=== PATIENT | female | born 1960 | race Caucasian/White ===

== ENCOUNTER 2016-09-29 06:00 | Emergency (ER) | payer OTHER ==
[~2016-09-29] VITALS: Ht 157.5 cm; Wt 83.4 kg
[2016-09-29 06:29] LABS: HEMATOCRIT 40.6 % (36.0-46.0); MCH 30.2 PG (29.0-34.0); MCHC 33.5 G/DL (30.0-36.0); MCV 90.2 FL (83-99); MEAN PLAT.VOLUME 9.2 uM^3 (9.5-12.4); PLATELET COUNT 280 K/uL (156-360); RBC DIS.WIDTH-CV 11.8 % (11.8-14.6); RBC DIS.WIDTH-SD 39.2 % (39-53); WHITE BLOOD COUNT 9.2 K/uL (4.1-10.2)
[2016-09-29 06:36] LABS: CHLORIDE 102 mEq/L (99-109); POTASSIUM 3.4 mEq/L (3.7-5.4); SODIUM 139 mEq/L (136-147)
[2016-09-29 06:38] LABS: GLUCOSE 119 mg/dL (70-99)
[2016-09-29 06:39] LABS: ANION GAP 10 MEQ/L (2-14)
[2016-09-29 06:40] LABS: TOTAL BILIRUBIN 0.6 mg/dL (0.0-1.0)
[2016-09-29 06:41] LABS: ALKALINE PHOSPHATASE 104 IU/L (3-129)
[2016-09-29 06:42] LABS: GFR ESTIMATE (CALCULATED) 54 mL/min/
[2016-09-29 06:43] LABS: UREA NITROGEN (BUN) 14 mg/dL (9-23)
[2016-09-29 06:45] LABS: LIPASE 40 U/L (1.0-51.0)
[2016-09-29 07:38] LABS: ADD MIUA? YES; BILIRUBIN NEGATIVE; BLOOD SMALL; COLOR YELLOW ((YELLOW)); GLUCOSE (STRIP) NEGATIVE; KETONES NEGATIVE; LEUKOCYTES NEGATIVE; NITRITE NEGATIVE; PROTEIN (STRIP) NEGATIVE; SPECIFIC GRAVITY 1.012 (1.000-1.030); UROBILINOGEN 0.2 MG/DL (0.2-1.0)
[2016-09-29 07:44] LABS: BACTERIA NONE SEEN /HPF; EPITHELIAL CELLS RARE /HPF; MUCUS TRACE /LPF; RED BLOOD CELLS 0-5 /HPF (0-5); UCUL ADDED? NO; WHITE BLOOD CELLS 0-5 /HPF (0-5)
[2016-09-29 09:14] VITALS: BP 148/92
== END 2016-09-29 09:16 | disposition home or self-care (01) ==
LOC: EME 06:00
DX: R10.9 Unspecified abdominal pain (principal)
CPT/HCPCS: 74020; 80053; 81003; 83690; 85027; 99281; 99284; J1885; J2405; J7030